=== PATIENT | female | born 1935 | race Hispanic/Latino ===

== ENCOUNTER 2019-03-12 12:45 | Emergency (ER) | payer MEDICARE ==
[~2019-03-12 12:45] MED LIST: ASPI-1005 PO; LISI-613 PO; PSORIASIS CREAM TP
[2019-03-12 14:13] LABS: BASOPHILS % (AUTO) 0.9 % (0.0-5.0); EOSINOPHILS % (AUTO) 3.9 % (0.0-8.0); HEMATOCRIT 40.6 % (36-48); LYMPHOCYTES % (AUTO) 18.6 % (21.0-51.0); MEAN CORPUSCULAR HEMOGLOBIN 28.6 pg (27.0-33.0); MEAN CORPUSCULAR HGB CONC 32.6 g/dL (32.0-36.0); MEAN CORPUSCULAR VOLUME 87.5 fL (79-99); MONOCYTES % (AUTO) 11.6 % (3.0-13.0); PLATELET COUNT (AUTO) 154 K/uL (130-400); RED BLOOD CELL COUNT(AUTO) 4.64 MIL/uL (4.00-5.50); RED CELL DISTRIBUTION WIDTH 15.5 % (11.0-15.5); WHITE BLOOD COUNT (AUTO) 5.6 K/uL (4.8-10.8)
[2019-03-12 14:31] LABS: INR 0.95 (0.85-1.15); PARTIAL THROMBOPLASTIN TIME 25.4 SEC (26.3-35.5)
[2019-03-12 14:36] LABS: APPEARANCE,URINE Clear (CLEAR); BILIRUBIN,URINE Negative (NEGATIVE); COLOR,URINE Yellow (YELLOW); GLUCOSE, URINE (UA) Negative (NEGATIVE); KETONES,URINE Negative (NEGATIVE); LEUKOCYTE ESTERASE ,URINE Negative (NEGATIVE); NITRATE,URINE Negative (NEGATIVE); OCCULT BLOOD,URINE Negative (NEGATIVE); PROTEIN,URINE Negative (NEGATIVE)
[2019-03-12 14:37] LABS: CREATININE 0.7 mg/dL (0.5-1.5); POTASSIUM 3.7 mmol/L (3.5-5.1)
[2019-03-12 14:42] LABS: ALBUMIN 3.9 g/dL (3.5-5.0); BILIRUBIN,TOTAL 0.5 mg/dL (0.2-1.0); TOTAL PROTEIN, SERUM 7.2 g/dL (6.0-8.3)
== END 2019-03-12 15:31 | disposition home or self-care (01) ==
LOC: EDH 12:45
DX: R42 Dizziness and giddiness (principal); I10 Essential (primary) hypertension; I25.10 Atherosclerotic heart disease of native coronary artery without angina pectoris; E78.5 Hyperlipidemia, unspecified; Z95.1 Presence of aortocoronary bypass graft; Z98.890 Other specified postprocedural states
CPT/HCPCS: 36415; 71045; 80053; 81003; 84484; 85025; 85610; 85730; 93005

== ENCOUNTER 2019-09-14 20:21 | Emergency (ER) | payer MEDICARE ==
[2019-09-14 20:55] LABS: APPEARANCE,URINE CLEAR (CLEAR); BILIRUBIN,URINE SMALL (NEGATIVE); COLOR,URINE YELLOW (YELLOW); GLUCOSE, URINE (UA) NEGATIVE (NEGATIVE); KETONES,URINE NEGATIVE (NEGATIVE); LEUKOCYTE ESTERASE ,URINE TRACE (NEGATIVE); NITRATE,URINE NEGATIVE (NEGATIVE); OCCULT BLOOD,URINE SMALL (NEGATIVE); PH,URINE 5.5 (5.0-8.0); PROTEIN,URINE 100 mg/dL (NEGATIVE); UROBILINOGEN,URINE 0.2 mg/dL (0.2-1.0)
[2019-09-14 21:09] LABS: BASOPHILS % (AUTO) 0.4 % (0.0-5.0); EOSINOPHILS % (AUTO) 2.1 % (0.0-8.0); HEMATOCRIT 44.6 % (36-48); LYMPHOCYTES % (AUTO) 7.5 % (21.0-51.0); MEAN CORPUSCULAR HEMOGLOBIN 29.5 pg (27.0-33.0); MEAN CORPUSCULAR HGB CONC 33.5 g/dL (32.0-36.0); MONOCYTES % (AUTO) 6.8 % (3.0-13.0); NEUTROPHILS % (AUTO) 83.2 % (40.0-77.0); PLATELET COUNT (AUTO) 144 K/uL (130-400); RED BLOOD CELL COUNT(AUTO) 5.07 MIL/uL (4.00-5.50); RED CELL DISTRIBUTION WIDTH 14.5 % (11.0-15.5); WHITE BLOOD COUNT (AUTO) 8.5 K/uL (4.8-10.8)
[2019-09-14 21:15] LABS: CREATININE 0.7 mg/dL (0.5-1.5); POTASSIUM 3.8 mmol/L (3.5-5.1)
[2019-09-14 21:18] LABS: BACTERIA,URINE Few /HPF (None Seen); RBC,URINE 0-1 /HPF (0-1)
[2019-09-14 21:19] LABS: MUCUS,URINE Rare LPF (None Seen); SQUAMOUS EPITHELIAL CELL,UR Few /HPF (0-2)
== END 2019-09-15 00:14 | disposition home or self-care (01) ==
LOC: EDH 20:21
DX: R11.2 Nausea with vomiting, unspecified (principal); R19.7 Diarrhea, unspecified; I10 Essential (primary) hypertension; R42 Dizziness and giddiness; E78.5 Hyperlipidemia, unspecified; I25.10 Atherosclerotic heart disease of native coronary artery without angina pectoris; Z95.1 Presence of aortocoronary bypass graft; Z87.891 Personal history of nicotine dependence
CPT/HCPCS: 36415; 80048; 81001; 82550; 84484; 85025; 93005

== ENCOUNTER 2020-05-17 18:04 | Emergency (ER) | payer MEDICARE ==
[2020-05-17] MEDS ORDERED: L.E.T. GEL 4%/0.5%/0.18% 3ML 3 ML/SYR SYG TP ONE (18:32)
[2020-05-17] MEDS ORDERED: LIDOCAINE HCL 1% 20 ML VIAL ONE (18:33)
[2020-05-17] MEDS ORDERED: LIDOCAINE/PRILOCAINE CREAM 5GM TUBE TP ONE (18:36)
[2020-05-17] MEDS ORDERED: CEFTRIAXONE SODIUM 1 GM ONE (20:11)
[2020-05-17] MEDS ORDERED: LIDOCAINE HCL-MPF 1% 2ML VIAL ONE (21:08)
== END 2020-05-17 21:48 | disposition home or self-care (01) ==
LOC: EDH 18:04
DX: S61.412A Laceration without foreign body of left hand, initial encounter (principal); E78.5 Hyperlipidemia, unspecified; I10 Essential (primary) hypertension; I25.10 Atherosclerotic heart disease of native coronary artery without angina pectoris; Z95.0 Presence of cardiac pacemaker; W54.0XXA Bitten by dog, initial encounter; Y93.89 Activity, other specified; Y92.098 Other place in other non-institutional residence as the place of occurrence of the external cause; Y99.8 Other external cause status
CPT/HCPCS: 12002; 73130; 96372; 99283; J0696; J3490 ×2

== ENCOUNTER 2020-06-15 20:06 | Emergency (ER) | payer MEDICARE | END 2020-06-15 22:56 | disposition home or self-care (01) | LOC: EDH 20:06 | DX: R30.0 Dysuria (principal); I10 Essential (primary) hypertension; E78.5 Hyperlipidemia, unspecified; I25.10 Atherosclerotic heart disease of native coronary artery without angina pectoris; Z95.1 Presence of aortocoronary bypass graft; Z98.890 Other specified postprocedural states; Z87.891 Personal history of nicotine dependence ==

== ENCOUNTER 2022-02-16 13:43 | Emergency (ER) | payer MEDICARE ==
[~2022-02-16] VITALS: Ht 152.4 cm; Wt 91.6 kg
[~2022-02-16 13:43] MED LIST changes: -LISI-613 PO; +LISI20TA24 PO
[2022-02-16 14:12] LABS: EOSINOPHILS % (AUTO) 3.7 % (0.0-8.0); HEMATOCRIT 40.7 % (36-48); LYMPHOCYTES % (AUTO) 24.7 % (21.0-51.0); MEAN CORPUSCULAR HEMOGLOBIN 26.5 pg (27.0-33.0); MEAN CORPUSCULAR VOLUME 85.7 fL (79-99); MONOCYTES % (AUTO) 11.2 % (3.0-13.0); NEUTROPHILS % (AUTO) 59.2 % (40.0-77.0); PLATELET COUNT (AUTO) 176 K/uL (130-400); RED BLOOD CELL COUNT(AUTO) 4.75 MIL/uL (4.00-5.50); RED CELL DISTRIBUTION WIDTH 14.6 % (11.0-15.5); WHITE BLOOD COUNT (AUTO) 5.1 K/uL (4.8-10.8)
[2022-02-16 14:22] LABS: CREATININE 1.1 mg/dL (0.5-1.5)
[2022-02-16 14:27] LABS: ALBUMIN 4.1 g/dL (3.5-5.0); BILIRUBIN,TOTAL 0.6 mg/dL (0.2-1.0); TOTAL PROTEIN, SERUM 8.3 g/dL (6.0-8.3)
[2022-02-16 14:33] LABS: APPEARANCE,URINE Clear (CLEAR); BILIRUBIN,URINE Negative (NEGATIVE); COLOR,URINE Yellow (YELLOW); GLUCOSE, URINE (UA) Negative (NEGATIVE); KETONES,URINE Negative (NEGATIVE); LEUKOCYTE ESTERASE ,URINE Trace (NEGATIVE); NITRATE,URINE Negative (NEGATIVE); OCCULT BLOOD,URINE Negative (NEGATIVE); PH,URINE 7.5 (5.0-8.0); PROTEIN,URINE Negative (NEGATIVE); UROBILINOGEN,URINE 0.2 mg/dL (0.2-1.0)
[2022-02-16 15:00] VITALS: BP 151/58
[2022-02-16 15:14] LABS: BACTERIA,URINE Rare /HPF (None Seen); RBC,URINE 0-1 /HPF (0-1)
[2022-02-16 15:15] LABS: SQUAMOUS EPITHELIAL CELL,UR Few /HPF (0-2); TRANSITIONAL EPI CELLS,URINE Rare /HPF (None Seen)
[2022-02-16] MEDS ORDERED: METO-408 PO (16:35)
[2022-02-16] MEDS ORDERED: FURO20TA4 PO (16:35)
[2022-02-16] MEDS ORDERED: ATOR10TA69 PO (16:35)
[2022-02-16] MEDS ORDERED: VALS320T16 PO (16:44)
[2022-02-16] MEDS ORDERED: CLON0.1T PO (16:44)
[2022-02-16] MEDS ORDERED: DONE-51 PO (16:44)
[2022-02-16] MEDS ORDERED: SYMB8060 IH (16:44)
[2022-02-16] MEDS ORDERED: AMLO-257 PO (16:44)
[2022-02-16] MEDS ORDERED: HYDR25TA PO (16:44)
[2022-02-16] MEDS ORDERED: MACR100 PO (17:51)
== END 2022-02-16 17:59 | disposition home or self-care (01) ==
LOC: EDH 13:43
DX: R55 Syncope and collapse (principal); N30.90 Cystitis, unspecified without hematuria; G30.9 Alzheimer's disease, unspecified; F02.80 Dementia in other diseases classified elsewhere, unspecified severity, without behavioral disturbance, psychotic disturbance, mood disturbance, and anxiety; I10 Essential (primary) hypertension; Z79.899 Other long term (current) drug therapy; Z79.82 Long term (current) use of aspirin; Z98.890 Other specified postprocedural states
CPT/HCPCS: 36415; 70450; 80053; 81001; 84484; 85025; 93005

== ENCOUNTER → 2023-05-18 | Outpatient (CLI) | payer MEDICARE ==
[~2023-05-18] MED LIST changes: +AMLO-257 PO; +ASCO100031 PO; +ATOR10TA69 PO; +BUDE10.2 IH; +CLON0.1T PO; +DONE10TA43 PO; +FURO20TA4 PO; -LISI20TA24 PO; +METO-408 PO; +MULT-952 PO; +PREVAGEN PO; +SYMB8060 IH; +VALS320T16 PO
== END | disposition home or self-care (01) ==
LOC: SHCH 14:46
PROVIDERS: ATTEND Internal Medicine
DX: I08.8 Other rheumatic multiple valve diseases (principal); I27.20 Pulmonary hypertension, unspecified
CPT/HCPCS: 93306

== ENCOUNTER 2023-09-24 10:09 | Emergency (ER) | payer MEDICARE ==
[~2023-09-24] VITALS: Ht 144.8 cm; Wt 82.1 kg
[2023-09-24 13:48] VITALS: BP 155/90; PULSE 77; RESP 18; O2SAT 98
[2023-09-24] MEDS ORDERED: ACETAMINOPHEN 325 MG TAB PO ONE (14:30)
[2023-09-24] MEDS ORDERED: AMOX875T2 PO (14:48)
== END 2023-09-24 15:10 | disposition home or self-care (01) ==
LOC: EDH 10:09
DX: S02.832A Fracture of medial orbital wall, left side, initial encounter for closed fracture (principal); E66.9 Obesity, unspecified; F02.80 Dementia in other diseases classified elsewhere, unspecified severity, without behavioral disturbance, psychotic disturbance, mood disturbance, and anxiety; I10 Essential (primary) hypertension; J44.9 Chronic obstructive pulmonary disease, unspecified; Z79.51 Long term (current) use of inhaled steroids; Z79.82 Long term (current) use of aspirin; Z79.899 Other long term (current) drug therapy; Z95.1 Presence of aortocoronary bypass graft; W18.39XA Other fall on same level, initial encounter; Y93.89 Activity, other specified; Y92.89 Other specified places as the place of occurrence of the external cause; Y99.8 Other external cause status
CPT/HCPCS: 70450; 70486; 72125

== ENCOUNTER 2024-03-22 21:32 | Inpatient (IN) | payer MEDICARE ==
[~2024-03-22] VITALS: Ht 152.4 cm; Wt 73.1 kg
[~2024-03-22 21:32] MED LIST changes: +AMOX875T2 PO
[2024-03-22 22:48] LABS: APPEARANCE,URINE CLOUDY (CLEAR); BILIRUBIN,URINE NEGATIVE (NEGATIVE); COLOR,URINE LIGHT-YELLOW (YELLOW); GLUCOSE, URINE (UA) NEGATIVE (NEGATIVE); KETONES,URINE NEGATIVE (NEGATIVE); LEUKOCYTE ESTERASE ,URINE 500 Leu/uL (NEGATIVE); NITRATE,URINE 2+ (NEGATIVE); PROTEIN,URINE 20 mg/dL (NEGATIVE); UROBILINOGEN,URINE 0.2 mg/dL (0.2-1.0)
[2024-03-22 22:49] LABS: BASOPHILS # (AUTO) 0.03 K/uL (0.00-0.20); BASOPHILS % (AUTO) 0.5 % (0.0-5.0); EOSINOPHILS # (AUTO) 0.43 K/uL (0.00-0.70); EOSINOPHILS % (AUTO) 7.3 % (0.0-8.0); HEMATOCRIT 36.4 % (36-48); IMMATURE GRANULOCYTE ABSOLUTE 0.02 K/uL (0-1); LYMPHOCYTES # (AUTO) 0.9 K/uL (1.0-4.8); LYMPHOCYTES % (AUTO) 15.4 % (21.0-51.0); MEAN CORPUSCULAR HEMOGLOBIN 28.2 pg (27.0-33.0); MEAN CORPUSCULAR HGB CONC 31.9 g/dL (32.0-36.0); MEAN CORPUSCULAR VOLUME 88.3 fL (79-99); MONOCYTES # (AUTO) 0.7 K/uL (0.1-1.0); MONOCYTES % (AUTO) 11.4 % (3.0-13.0); NEUTROPHILS # (AUTO) 3.8 K/uL (1.8-7.7); NEUTROPHILS % (AUTO) 65.1 % (40.0-77.0); PLATELET COUNT (AUTO) 130 K/uL (130-400); RED BLOOD CELL COUNT(AUTO) 4.12 MIL/uL (4.00-5.50); RED CELL DISTRIBUTION WIDTH 15.3 % (11.0-15.5); WHITE BLOOD COUNT (AUTO) 5.9 K/uL (4.8-10.8)
[2024-03-22 22:50] LABS: ADD UA MICROSCOPIC YES
[2024-03-22 23:01] LABS: MUCUS,URINE RARE LPF (None Seen); SQUAMOUS EPITHELIAL CELL,UR RARE /HPF (0-2); WBC CLUMP FEW /HPF (0-1); WBC,URINE TNTC /HPF (0-1)
[2024-03-22 23:10] LABS: B-TYPE NATRIURETIC PEPTIDE 719 pg/mL (0-100); CREATININE 1.6 mg/dL (0.5-1.0); POTASSIUM 3.8 mmol/L (3.5-5.1)
[2024-03-22 23:12] LABS: BACTERIA,URINE Few /HPF (None Seen)
[2024-03-22 23:28] LABS: ALBUMIN 3.8 g/dL (3.5-5.0); BILIRUBIN,TOTAL 0.9 mg/dL (0.2-1.0); TOTAL PROTEIN, SERUM 7.4 g/dL (6.0-8.3)
[2024-03-23] MEDS: ACETAMINOPHEN 325 MG TAB PO ONE (00:39)
[2024-03-23] MEDS ORDERED: ONDANSETRON 4MG INJ IV PRN (04:30)
[2024-03-23] MEDS ORDERED: MAGNESIUM 2GM PREMIX 50ML 50 ML IV PRN (04:30)
[2024-03-23] MEDS ORDERED: POTASSIUM CHLORIDE 20MEQ/100ML 100 ML IV PRN (04:30)
[2024-03-23] MEDS: HEPARIN 5,000 UNIT VIAL SQ SCH (04:30)
[2024-03-23] MEDS: CEFTRIAXONE 1G VIAL IVPB SCH (04:36)
[2024-03-23 04:42] LABS: BASOPHILS # (AUTO) 0.04 K/uL (0.00-0.20); BASOPHILS % (AUTO) 0.7 % (0.0-5.0); EOSINOPHILS # (AUTO) 0.47 K/uL (0.00-0.70); EOSINOPHILS % (AUTO) 8.1 % (0.0-8.0); HEMATOCRIT 36.5 % (36-48); IMMATURE GRANULOCYTE ABSOLUTE 0.01 K/uL (0-1); LYMPHOCYTES # (AUTO) 0.9 K/uL (1.0-4.8); LYMPHOCYTES % (AUTO) 15.3 % (21.0-51.0); MEAN CORPUSCULAR HEMOGLOBIN 28.8 pg (27.0-33.0); MEAN CORPUSCULAR HGB CONC 31.8 g/dL (32.0-36.0); MEAN CORPUSCULAR VOLUME 90.6 fL (79-99); MONOCYTES # (AUTO) 0.7 K/uL (0.1-1.0); MONOCYTES % (AUTO) 11.9 % (3.0-13.0); NEUTROPHILS # (AUTO) 3.7 K/uL (1.8-7.7); NEUTROPHILS % (AUTO) 63.8 % (40.0-77.0); PLATELET COUNT (AUTO) 122 K/uL (130-400); RED BLOOD CELL COUNT(AUTO) 4.03 MIL/uL (4.00-5.50); RED CELL DISTRIBUTION WIDTH 15.1 % (11.0-15.5); WHITE BLOOD COUNT (AUTO) 5.8 K/uL (4.8-10.8)
[2024-03-23 04:57] LABS: ALBUMIN 3.4 g/dL (3.5-5.0); BILIRUBIN,TOTAL 0.9 mg/dL (0.2-1.0); CREATININE 1.5 mg/dL (0.5-1.0); MAGNESIUM 2.1 mg/dL (1.80-2.40); POTASSIUM 3.9 mmol/L (3.5-5.1); TOTAL PROTEIN, SERUM 6.8 g/dL (6.0-8.3)
[2024-03-23 05:49] LABS: ERYTHROCYTE SEDIMENTATION RATE 15 MM/HR (0-30)
[2024-03-23] MEDS ORDERED: HYDR25TA PO (06:36)
[2024-03-23 08:00] VITALS: BP 123/77; PULSE 84; RESP 17
[2024-03-23] MEDS: FUROSEMIDE 20MG VIAL IV SCH (08:16)
[2024-03-23] MEDS: FAMOTIDINE 20MG VIAL IV SCH (08:16)
[2024-03-23] MEDS ORDERED: ACETAMINOPHEN 325 MG TAB PO PRN (11:00)
[2024-03-23] MEDS: ACETAMINOPHEN 325 MG TAB PO PRN (11:21)
[2024-03-23] MEDS ORDERED: [UNRECOGNIZED DRUG - OTHER] PO (11:40)
[2024-03-23] MEDS: HYDROXYZINE 25 MG TABLET PO PRN (11:43)
[2024-03-23 12:00] VITALS: BP 144/71; PULSE 57; RESP 18
[2024-03-23 16:00] VITALS: BP 142/56; PULSE 85; RESP 18
[2024-03-23] MEDS ORDERED: POLYETHYLENE GLYCOL 3350 17 GM POWD.PACK PO ONE (17:00)
[2024-03-23] MEDS: APIXABAN 2.5 MG TABLET PO SCH (17:38)
[2024-03-23 19:18] VITALS: BP 133/59; PULSE 75; RESP 16
[2024-03-23 20:00] VITALS: O2SAT 96
[2024-03-23] MEDS: ATORVASTATIN 10 MG TABLET PO SCH (20:28)
[2024-03-23] MEDS: APPL TP SCH (20:29)
[2024-03-23] MEDS: SYMBICORT 160-4.5 MCG INHALER IH SCH (20:34)
[2024-03-23] MEDS: CLOTRIMAZOLE/BETAMETHASONE DIP 45 GM CREAM.GM. TP SCH (21:00)
[2024-03-23 23:19] VITALS: BP 119/61; PULSE 62; RESP 17
[2024-03-24 03:40] VITALS: BP 130/54; PULSE 72; RESP 18
[2024-03-24 05:47] LABS: HEMATOCRIT 35.2 % (36-48); MEAN CORPUSCULAR HEMOGLOBIN 28.4 pg (27.0-33.0); MEAN CORPUSCULAR HGB CONC 32.1 g/dL (32.0-36.0); MEAN CORPUSCULAR VOLUME 88.4 fL (79-99); RED BLOOD CELL COUNT(AUTO) 3.98 MIL/uL (4.00-5.50); RED CELL DISTRIBUTION WIDTH 15.2 % (11.0-15.5); WHITE BLOOD COUNT (AUTO) 4.3 K/uL (4.8-10.8)
[2024-03-24 08:00] VITALS: BP 141/65; PULSE 71; RESP 18; O2SAT 96
[2024-03-24] MEDS ORDERED: FUROSEMIDE 20 MG TABLET PO SCH (09:00)
[2024-03-24] MEDS ORDERED: HYDROCHLOROTHIAZIDE 25 MG TABLET PO SCH (09:00)
[2024-03-24] MEDS ORDERED: ASPIRIN 81MG CHEW TAB PO SCH (09:00)
[2024-03-24] MEDS: VALSARTAN 320 MG PO SCH (09:00)
[2024-03-24] MEDS: DONEPEZIL HCL 5 MG TAB PO SCH (09:42)
[2024-03-24] MEDS: CETIRIZINE HCL 5 MG TABLET PO SCH (09:42)
[2024-03-24] MEDS: FUROSEMIDE 20 MG TABLET PO SCH (09:42)
[2024-03-24 12:00] VITALS: BP 131/75; PULSE 90; RESP 18
[2024-03-24 16:00] VITALS: BP 127/55; PULSE 72; RESP 18
[2024-03-24 20:00] VITALS: BP 120/42; PULSE 57; RESP 16; O2SAT 97
[2024-03-25] VITALS (8 sets, daily range): BP systolic 112–148; BP diastolic 43–68; PULSE 61–105; RESP 16–20; O2SAT 97
[2024-03-25 05:42] LABS: HEMATOCRIT 35.5 % (36-48); MEAN CORPUSCULAR HEMOGLOBIN 28.5 pg (27.0-33.0); MEAN CORPUSCULAR HGB CONC 32.1 g/dL (32.0-36.0); MEAN CORPUSCULAR VOLUME 88.8 fL (79-99); RED CELL DISTRIBUTION WIDTH 15.1 % (11.0-15.5); WHITE BLOOD COUNT (AUTO) 5.4 K/uL (4.8-10.8)
[2024-03-25 06:06] LABS: ALBUMIN 3.3 g/dL (3.5-5.0); BILIRUBIN,TOTAL 0.5 mg/dL (0.2-1.0); CREATININE 1.6 mg/dL (0.5-1.0); TOTAL PROTEIN, SERUM 6.9 g/dL (6.0-8.3)
[2024-03-25] MEDS: FAMOTIDINE 20MG VIAL IV SCH (09:04)
[2024-03-26] VITALS: BP 137/64; PULSE 61; RESP 18
[2024-03-26 04:00] VITALS: BP 144/69; PULSE 62; RESP 18
[2024-03-26 05:18] LABS: HEMATOCRIT 36.2 % (36-48); MEAN CORPUSCULAR HEMOGLOBIN 27.8 pg (27.0-33.0); MEAN CORPUSCULAR HGB CONC 30.7 g/dL (32.0-36.0); MEAN CORPUSCULAR VOLUME 90.7 fL (79-99); PLATELET COUNT (AUTO) 147 K/uL (130-400); RED BLOOD CELL COUNT(AUTO) 3.99 MIL/uL (4.00-5.50); RED CELL DISTRIBUTION WIDTH 15.3 % (11.0-15.5); WHITE BLOOD COUNT (AUTO) 5.1 K/uL (4.8-10.8)
[2024-03-26 05:46] LABS: ALBUMIN 3.2 g/dL (3.5-5.0); BILIRUBIN,TOTAL 0.4 mg/dL (0.2-1.0); CREATININE 1.5 mg/dL (0.5-1.0); MAGNESIUM 2.1 mg/dL (1.80-2.40); POTASSIUM 4.1 mmol/L (3.5-5.1); TOTAL PROTEIN, SERUM 6.8 g/dL (6.0-8.3)
[2024-03-26 08:00] VITALS: BP 135/62; PULSE 64; RESP 16; O2SAT 96
[2024-03-26 12:00] VITALS: BP 136/62; PULSE 77; RESP 20
[2024-03-26] MEDS ORDERED: APIX2.5T PO (14:26)
[2024-03-26] MEDS ORDERED: CEFD300C3 PO (14:28)
== END 2024-03-26 15:30 | disposition home or self-care (01) | DRG 640 ==
LOC: EDH 21:32 → EDHIP 03-23 04:02 → OBSVTOIN 03-23 04:02 → 3DH 03-23 04:28
PROVIDERS: ADMIT Internal Medicine; ATTEND Internal Medicine
DX: E86.0 Dehydration (principal); G93.41 Metabolic encephalopathy; I50.33 Acute on chronic diastolic (congestive) heart failure; I13.0 Hypertensive heart and chronic kidney disease with heart failure and stage 1 through stage 4 chronic kidney disease, or unspecified chronic kidney disease; N39.0 Urinary tract infection, site not specified; I48.19 Other persistent atrial fibrillation; F02.80 Dementia in other diseases classified elsewhere, unspecified severity, without behavioral disturbance, psychotic disturbance, mood disturbance, and anxiety; G30.9 Alzheimer's disease, unspecified; G31.9 Degenerative disease of nervous system, unspecified; L30.9 Dermatitis, unspecified; I35.0 Nonrheumatic aortic (valve) stenosis; E78.00 Pure hypercholesterolemia, unspecified; N18.9 Chronic kidney disease, unspecified; B96.1 Klebsiella pneumoniae [K. pneumoniae] as the cause of diseases classified elsewhere; I27.20 Pulmonary hypertension, unspecified; J44.9 Chronic obstructive pulmonary disease, unspecified; Z79.51 Long term (current) use of inhaled steroids; J84.10 Pulmonary fibrosis, unspecified; Z95.3 Presence of xenogenic heart valve; Z79.82 Long term (current) use of aspirin; Z82.0 Family history of epilepsy and other diseases of the nervous system; Z79.899 Other long term (current) drug therapy; Z87.891 Personal history of nicotine dependence; Z95.1 Presence of aortocoronary bypass graft
CPT/HCPCS: 36415; 70450; 71045; 80053; 81001; 82948; 83735; 83880; 84145; 84484; 85025; 85027; 85651; 87077; 87088; 87186; 92610; 93005; 93970; 99291; 99292; G0378; J0696; J1644; J1940; J3490